=== PATIENT | male | born 1975 | race Caucasian/White ===

== ENCOUNTER 2017-02-20 23:46 | Emergency (ER) | payer MEDICAID ==
[2017-02-21 01:33] VITALS: BP 130/76
== END 2017-02-21 01:33 | disposition home or self-care (01) ==
LOC: ED 23:46
DX: S93.492A Sprain of other ligament of left ankle, initial encounter (principal); S83.92XA Sprain of unspecified site of left knee, initial encounter; Y93.39 Activity, other involving climbing, rappelling and jumping off; Y92.89 Other specified places as the place of occurrence of the external cause; Y99.8 Other external cause status
CPT/HCPCS: Q0092

== ENCOUNTER 2017-09-28 11:40 | Emergency (ER) | payer MEDICAID ==
[~2017-09-28] VITALS: Ht 182.9 cm; Wt 88.9 kg
[2017-09-28 11:53] VITALS: Ht 182.9 cm; Wt 88.9 kg
[2017-09-28 13:32] VITALS: BP 131/74
== END 2017-09-28 13:32 | disposition home or self-care (01) ==
LOC: ED 11:40
DX: M62.830 Muscle spasm of back (principal); R07.89 Other chest pain
CPT/HCPCS: J2001; Q0092

== ENCOUNTER 2017-12-27 20:57 | Emergency (ER) | payer MEDICAID ==
[~2017-12-27] VITALS: Ht 182.9 cm; Wt 86.6 kg
[2017-12-27 21:08] VITALS: Ht 182.9 cm; Wt 86.6 kg
[2017-12-27 23:30] VITALS: BP 127/72
== END 2017-12-27 23:30 | disposition home or self-care (01) ==
LOC: ED 20:57
DX: B34.9 Viral infection, unspecified (principal); N48.89 Other specified disorders of penis
CPT/HCPCS: 87491; 87591; J1885